=== PATIENT | female | born 1950 | race Caucasian/White ===

== ENCOUNTER → 2016-03-24 | Outpatient (REF) | payer MEDICARE ==
[2016-03-24 19:55] LABS: ALBUMIN 4.1 GM/DL (3.2-5.2); ALBUMIN/GLOBULIN RATIO 1.21 (1.00-1.93); BILIRUBIN,TOTAL 0.4 MG/DL (0.2-1.0); CALCIUM LEVEL 9.3 MG/DL (8.8-10.2); CREATININE FOR GFR 1.06 MG/DL (0.55-1.02); POTASSIUM SERUM 4.3 MEQ/L (3.5-5.1); TOTAL PROTEIN 7.5 GM/DL (6.4-8.2)
[2016-03-24 19:59] LABS: BASO % 0.6 % (0.0-1.0); EOS # 0.4 K/mm3 (0.0-0.50); EOS % 5.7 % (0.0-3.0); LYMPH # 2.4 K/mm3 (1.5-4.5); LYMPH % 31.1 % (24.0-44.0); MEAN CORPUSCULAR HEMOGLOBIN 28.3 pg (27.0-33.0); MEAN CORPUSCULAR HGB CONC 32.4 g/dl (32.0-36.5); MEAN CORPUSCULAR VOLUME 87.5 fl (80.0-96.0); MONO # 0.5 K/mm3 (0.0-0.8); MONO % 6.9 % (0.0-5.0); NEUTROPHILS # 3.6 K/mm3 (1.8-7.7); RED CELL DISTRIBUTION WIDTH 13.1 % (11.5-14.5)
== END | disposition home or self-care (01) ==
LOC: M LAB REF 17:18
PROVIDERS: ATTEND Physician Assistant Medical
DX: E11.9 Type 2 diabetes mellitus without complications (principal)

== ENCOUNTER → 2016-03-28 | Outpatient (CLI) | payer MEDICARE ==
[~2016-03-28] MED LIST: GASTROGRAFIN SOLUTION 30ML (Q9963) As Ordered ONE; ISOVUE-370 76% 100ML VIAL (Q9967) As Ordered ONE
--- NOTE | 2016-03-28 14:56 | REP ---
Clinical: Generalized abdominal pain and gastroparesis. Technique: Axial contrast enhanced images from the lung bases to the pubic symphysis using oral and 100 ml Isovue 370 intravenous contrast material with precontrast and delayed images of the abdomen as well as coronal and sagittal re-formations. Comparison: None. Findings: Lung bases demonstrate mild emphysematous changes and infrahilar bronchiectasis. Visualized portions of the heart and pericardium normal. Liver, spleen, pancreas, bilateral adrenal glands are normal. Kidneys demonstrate mild symmetric chronic perinephric stranding along with 1 mm nonobstructing left renal calculus and 1.6 cm right renal cyst. The enteric system including stomach, small and large bowel is without obstruction or acute inflammatory process. Pelvis demonstrates normal bladder and age-appropriate uterus/adnexa. No pelvic fluid/ascites. No adenopathy. No mass lesion. Atherosclerotic changes of the aorta noted without aneurysm or dissection. Musculoskeletal structures are intact. Impression: No acute intra-abdominal or pelvic pathology appreciated. 1.6 cm right renal cyst and 1 mm nonobstructing left renal calculus. Signed by Ron Morin MD 03/28/2016 02:48 P
== END | disposition home or self-care (01) ==
LOC: M RAD 12:31 → MERGE 14:00
PROVIDERS: ATTEND Physician Assistant Medical
DX: K31.84 Gastroparesis (principal); N28.1 Cyst of kidney, acquired; N20.0 Calculus of kidney
CPT/HCPCS: 74178; Q9963; Q9967

== ENCOUNTER → 2016-04-14 | Outpatient (CLI) | payer MEDICARE ==
--- NOTE | 2016-04-14 09:02 | REP ---
CT STUDY OF THE CHEST WITHOUT CONTRAST: HISTORY: COPD. Bronchiectasis, cough. No comparison CT study. No comparison chest x-ray. CT FINDINGS: Preliminary digital floor covering printer assistant radiograph shows clips in the right upper quadrant, median sternotomy wires, and surgical fusion hardware in the cervical spine. There is no evidence of pleural or pericardial effusion. Vascular calcification is seen including the coronary arteries. No adrenal lesion is seen. There are clips in right upper quadrant. There is a 1.7 cm cyst in the upper pole of the right kidney. A tiny intrarenal calculus is seen in the upper pole of the left kidney, 2 mm in diameter. No hilar or mediastinal mass or adenopathy is seen. No pulmonary nodule or lung mass lesion is observed. No infiltrate is seen. No bony destructive lesion is appreciated. There is an area of interstitial fibrosis in the right lower lobe posteromedially adjacent to some thoracic spine osteophytes. No other significant finding. IMPRESSION: Postoperative changes as above. Small zone of interstitial fibrosis and a granulomatous calcification are seen in the right lower lobe. No acute cardiopulmonary disease seen. Signed by Sunny Vera MD 04/14/2016 02:26 P
== END ==
LOC: M RAD 06:48
PROVIDERS: ATTEND Physician Assistant Medical
DX: J44.9 Chronic obstructive pulmonary disease, unspecified (principal); R91.8 Other nonspecific abnormal finding of lung field

== ENCOUNTER → 2016-05-26 | Outpatient (REF) | payer MEDICARE ==
[2016-05-26 19:12] LABS: BASO % 0.5 % (0.0-1.0); EOS # 0.6 K/mm3 (0.0-0.50); EOS % 8.8 % (0.0-3.0); LYMPH # 2.2 K/mm3 (1.5-4.5); LYMPH % 30.9 % (24.0-44.0); MEAN CORPUSCULAR HEMOGLOBIN 28.2 pg (27.0-33.0); MEAN CORPUSCULAR HGB CONC 31.7 g/dl (32.0-36.5); MEAN CORPUSCULAR VOLUME 89.1 fl (80.0-96.0); MONO # 0.4 K/mm3 (0.0-0.8); MONO % 6.6 % (0.0-5.0); NEUTROPHILS # 3.3 K/mm3 (1.8-7.7); NEUTROPHILS % 50.5 % (36.0-66.0); RED CELL DISTRIBUTION WIDTH 13.6 % (11.5-14.5); WHITE BLOOD COUNT 6.6 K/mm3 (4.0-10.0)
[2016-05-26 20:29] LABS: ALBUMIN 4.2 GM/DL (3.2-5.2); ALBUMIN/GLOBULIN RATIO 1.27 (1.00-1.93); ALKALINE PHOSPHATASE 69 U/L (45-117); ALT/SGPT 47 U/L (12-78); ANION GAP 9 MEQ/L (8-16); AST/SGOT 31 U/L (15-37); BILIRUBIN,TOTAL 0.3 MG/DL (0.2-1.0); BLOOD UREA NITROGEN 11 MG/DL (7-18); CALCIUM LEVEL 8.7 MG/DL (8.8-10.2); CARBON DIOXIDE LEVEL 26 MEQ/L (21-32); CHLORIDE LEVEL 106 MEQ/L (98-107); CHOLESTEROL LEVEL 222 MG/DL (<200); CREATININE FOR GFR 0.91 MG/DL (0.55-1.02); GLOMERULAR FILTRATION RATE > 60.0 (>45); GLUCOSE, FASTING 137 MG/DL (80-110); POTASSIUM SERUM 4.6 MEQ/L (3.5-5.1); SODIUM LEVEL 141 MEQ/L (136-145); TOTAL PROTEIN 7.5 GM/DL (6.4-8.2); TRIGLYCERIDES LEVEL 194 MG/DL (<150)
== END ==
LOC: M LAB REF 17:12
PROVIDERS: ATTEND Physician Assistant Medical
DX: E11.9 Type 2 diabetes mellitus without complications (principal)

== ENCOUNTER → 2016-05-28 | Outpatient (CLI) | payer MEDICARE ==
[~2016-05-28] MED LIST changes: +E-Z PAQUE 60% w/v SUSP 355ML BOTTLE As Ordered ONE; -GASTROGRAFIN SOLUTION 30ML (Q9963) As Ordered ONE; -ISOVUE-370 76% 100ML VIAL (Q9967) As Ordered ONE
--- NOTE | 2016-05-28 17:47 | REP ---
SMALL BOWEL FOLLOW-THROUGH: The procedure was performed under the direct supervision of Dr. Vera. The images were reviewed with Dr. Vera. The teachers' assistant film shows no organomegaly or pathological masses. The intestinal gas pattern is nonspecific. There are surgical clips noted in the right upper quadrant. There are vascular calcifications identified. Liquid barium was administered and the barium column was followed through the small bowel to the level of the terminal ileum. Small bowel transit time is approximately 3 1/2 hours. During fluoroscopy gentle palpation shows all loops are freely movable and pliable. There are no fixed or angulated loops. The small bowel mucosal pattern is normal in course and caliber. There is no transition to suggest a partial small bowel obstruction. Spot filming of terminal ileum shows it to be unremarkable. IMPRESSION: Small bowel follow-through examination within normal limits. 47 seconds of fluoroscopy time was utilized for this procedure. Reviewed by [place] Norton 05/29/2016 04:07 PEdited and Signed by Sunny Vera MD 05/29/2016 04:45 P
== END ==
LOC: M RAD 08:06
PROVIDERS: ATTEND Physician Assistant Medical
DX: K31.84 Gastroparesis (principal)

== ENCOUNTER → 2016-06-12 | Outpatient (CLI) | payer MEDICARE ==
--- NOTE | 2016-06-12 10:22 | REP ---
NUCLEAR GASTRIC EMPTYING SCAN: Following the oral administration of 1.02 millicuries technetium 99m sulfur colloid in two scrambled eggs in 1 ounce of water, multiple images of the upper abdomen are performed in the anterior and posterior projections for 90 minutes. Gastric activity is measured. At the end of 90 minutes, there is essentially no emptying of the stomach with activity unchanged. IMPRESSION: Findings compatible with gastroparesis. After 90 minutes, there is no evidence of gastric emptying scintigraphically. Signed by Mitchell Gan MD 06/13/2016 05:10 P
== END ==
LOC: M RAD 07:52
PROVIDERS: ATTEND Internal Medicine Gastroenterology
DX: K31.84 Gastroparesis (principal)
CPT/HCPCS: 78264; A9541

== ENCOUNTER → 2016-06-20 | Outpatient (CLI) | payer MEDICARE ==
[~2016-06-20] MED LIST changes: -E-Z PAQUE 60% w/v SUSP 355ML BOTTLE As Ordered ONE; +E-Z-GAS II EFFERVESCENT PACKET (SODIUM BICARB./CITRIC ACID/SIMETHICONE) As Ordered ONE; +E-Z-HD 98% w/w 340GM SUSP BTL As Ordered ONE; +E-Z-PAQUE 96% w/w SUSP 176GM BTL As Ordered ONE; +METF1000 PO; +OMEP40CA2 PO; +ROSU40TA PO; +TOPR25TA PO; +VITA50003 PO
--- NOTE | 2016-06-20 16:53 | REP ---
ESOPHAGRAM, AIR CONTRAST: The procedure was performed under the direct supervision of Dr. Gan. The images were reviewed with Dr. Gan. A single view PA chest x-ray is submitted as a avionics test technician film. The patient is status-post median sternotomy. There are surgical clips noted in the right upper quadrant. There is no active disease. Liquid barium and gas producing granules were given in the erect position as well as liquid barium in the prone oblique positions in order to perform an double contrast esophagram examination. The oral and pharyngeal stages of deglutition are unremarkable. 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 There is cervical fusion hardware seen from the C4 through C7 levels. Esophageal transport is prompt and efficient. In the distal esophagus there is mucosal irregularity and a stricture with patent lumen which measures 8 mm. There is a hiatal hernia present. There is gastroesophageal reflux demonstrated to above the level of the prateek. These findings may represent reflux esophagitis. IMPRESSION: 1. 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 2. In the distal esophagus there is mucosal irregularity and a stricture, with a patent lumen which measures 8 mm. There is hiatal hernia present. There is gastroesophageal reflux demonstrated to above the level of the prateek. These findings may represent reflux esophagitis. 1 minute and 1 second of fluoroscopic time was utilized for this procedure. Reviewed by [place] Norton 06/20/2016 05:03 PEdited and Signed by Mitchell Gan MD 06/20/2016 07:55 P
== END ==
LOC: M RAD 08:12
PROVIDERS: ATTEND Internal Medicine Gastroenterology
DX: K21.9 Gastro-esophageal reflux disease without esophagitis (principal); R13.10 Dysphagia, unspecified; R11.10 Vomiting, unspecified; Q39.4 Esophageal web; K22.2 Esophageal obstruction; K44.9 Diaphragmatic hernia without obstruction or gangrene

== ENCOUNTER → 2016-06-27 | Outpatient (CLI) | payer MEDICARE ==
[~2016-06-27] VITALS: Ht 149.9 cm; Wt 47.6 kg
[~2016-06-27] MED LIST changes: -E-Z-GAS II EFFERVESCENT PACKET (SODIUM BICARB./CITRIC ACID/SIMETHICONE) As Ordered ONE; -E-Z-HD 98% w/w 340GM SUSP BTL As Ordered ONE; -E-Z-PAQUE 96% w/w SUSP 176GM BTL As Ordered ONE; +LIDOCAINE 2% INJ 100 MG/5 ML SDV (FOR ANES.) As Ordered ONE; +METOPROLOL SUCC *XL* 25MG TAB (TopROL *XL*) As Ordered ONE; +METOPROLOL SUCC *XL* 25MG TAB (TopROL *XL*) PO ONE; +NS 1,000 ML IV SCH; +PROPOFOL 200 MG/20 ML VIAL As Ordered ONE; +TRUL0.5I SC
[2016-06-27 07:27] VITALS: BP 142/73
--- NOTE | 2016-06-27 08:16 | ROOR ---
Patient Name: Megan Shaw Procedure Date: 06/27/2016 7:48 AM Date of : 1950 Age: 66 Room: [facility] Gender: Female Note Status: Finalized Procedure: Upper GI endoscopy Indications: Abnormal cine-esophagram, Gastroparesis, Eructation Providers: Stanton ENGLE MD Referring MD: MORRIS MUNOZ Requesting Provider: Medicines: Monitored Anesthesia Care Complications: No immediate complications. Procedure: Pre-Anesthesia Assessment: - The heart rate, respiratory rate, oxygen saturations, blood pressure, adequacy of pulmonary ventilation, and response to care were monitored throughout the procedure. The Endoscope was introduced through the mouth, and advanced to the second part of duodenum. The upper GI endoscopy was accomplished without difficulty. The patient tolerated the procedure well. Findings: A medium amount of food (residue) was found in the entire examined stomach. Removal of food was accomplished. The examined duodenum was normal. (pylorus is patent, no gastric oulet obstruction) One moderate (circumferential scarring or stenosis; an endoscope may pass) benign-appearing, intrinsic stenosis was found in the lower third of the esophagus. This measured 1 cm (in length) and was traversed. A TTS dilator was passed through the scope. Dilation with a 15-16.5-18 mm balloon dilator was performed to 16.5 mm. The dilation site was examined and showed moderate improvement in luminal narrowing and complete resolution of luminal narrowing. Impression: - Stomach: Gastroparesis: A medium amount of food (residue) in the stomach interfering with visualisation, Partial removal was successful. - Duodenum: Normal examined duodenum. Pylorus is patent. - Lower Esophagus: Benign-appearing distal esophageal stenosis. - dilated to 16.5 mm with TTS balloon dilator. - Upper Esophagus: I do not see a definite proximal esophageal web described on BA swallow. Recommendation: - Gastroparesis diet: - Eat smaller, more frequent meals throughout the day. - Low fat diet. - Liquid/soft foods are tolerated better than solid foods. - Low fiber/well cooked vegetables are tolerated better than high fiber/fibrous foods/raw vegetables. - Avoid medications that inhibit gastric/intestinal motility such as narcotic medications. - Continue present medications. - Repeat upper endoscopy in 1 month because the preparation was poor and for retreatment. - My office will call you to reschedule the procedure. Stanton Engle MD Stanton ENGLE MD 06/27/2016 8:16:26 AM This report has been signed electronically. Number of Addenda: 0 Note Initiated On: 06/27/2016 7:48 AM Estimated Blood Loss: Estimated blood loss: none.
[2016-06-27 08:30] VITALS: BP 127/70
== END | disposition home or self-care (01) ==
LOC: M OPP 06:41
PROVIDERS: ATTEND Internal Medicine Gastroenterology
DX: R93.3 Abnormal findings on diagnostic imaging of other parts of digestive tract (principal); R14.2 Eructation; K31.84 Gastroparesis; K22.2 Esophageal obstruction; T18.2XXA Foreign body in stomach, initial encounter; I25.10 Atherosclerotic heart disease of native coronary artery without angina pectoris; I10 Essential (primary) hypertension; E78.5 Hyperlipidemia, unspecified; R19.7 Diarrhea, unspecified; K59.00 Constipation, unspecified; R12 Heartburn; R11.10 Vomiting, unspecified; M54.9 Dorsalgia, unspecified; E11.9 Type 2 diabetes mellitus without complications; M79.7 Fibromyalgia; Z95.1 Presence of aortocoronary bypass graft; Z88.5 Allergy status to narcotic agent; Z79.82 Long term (current) use of aspirin; Z79.84 Long term (current) use of oral hypoglycemic drugs; Z79.899 Other long term (current) drug therapy; Y92.9 Unspecified place or not applicable

== ENCOUNTER → 2016-07-30 | Outpatient (CLI) | payer MEDICARE ==
[~2016-07-30] MED LIST changes: -LIDOCAINE 2% INJ 100 MG/5 ML SDV (FOR ANES.) As Ordered ONE; -METOPROLOL SUCC *XL* 25MG TAB (TopROL *XL*) As Ordered ONE; -METOPROLOL SUCC *XL* 25MG TAB (TopROL *XL*) PO ONE; -NS 1,000 ML IV SCH; -PROPOFOL 200 MG/20 ML VIAL As Ordered ONE
[2016-07-30 10:10] LABS: ALBUMIN 4.1 GM/DL (3.2-5.2); ALBUMIN/GLOBULIN RATIO 1.24 (1.00-1.93); ALKALINE PHOSPHATASE 61 U/L (45-117); ALT/SGPT 48 U/L (12-78); ANION GAP 5 MEQ/L (8-16); AST/SGOT 40 U/L (15-37); BILIRUBIN,TOTAL 0.3 MG/DL (0.2-1.0); BLOOD UREA NITROGEN 10 MG/DL (7-18); CALCIUM LEVEL 9.2 MG/DL (8.8-10.2); CARBON DIOXIDE LEVEL 29 MEQ/L (21-32); CHLORIDE LEVEL 105 MEQ/L (98-107); CHOLESTEROL LEVEL 234 MG/DL (<200); CREATININE FOR GFR 0.93 MG/DL (0.55-1.02); GLOMERULAR FILTRATION RATE > 60.0 (>45); GLUCOSE, FASTING 121 MG/DL (80-110); SODIUM LEVEL 139 MEQ/L (136-145); TOTAL PROTEIN 7.4 GM/DL (6.4-8.2); TRIGLYCERIDES LEVEL 257 MG/DL (<150)
[2016-07-30 10:16] LABS: POTASSIUM SERUM 5.4 MEQ/L (3.5-5.1)
== END ==
LOC: M WUC 08:28
PROVIDERS: ATTEND Physician Assistant Medical
DX: E11.9 Type 2 diabetes mellitus without complications (principal)

== ENCOUNTER → 2016-08-22 | Outpatient (CLI) | payer MEDICARE ==
[~2016-08-22] VITALS: Ht 149.9 cm; Wt 49.9 kg
[~2016-08-22] MED LIST changes: +LIDOCAINE 2% INJ 100 MG/5 ML SDV (FOR ANES.) As Ordered ONE; -METF1000 PO; +METF10004 PO; +NS 1,000 ML IV ONE; +ONDA4TAB6 PO; +PROPOFOL 200 MG/20 ML VIAL As Ordered ONE; +VITA1CAP40 PO; -VITA50003 PO; +ZETI10TA30 PO
--- NOTE | 2016-08-22 10:01 | ROOR ---
Patient Name: Megan Shaw Procedure Date: 08/22/2016 9:39 AM Date of : 1950 Age: 66 Room: [facility] Gender: Female Note Status: Finalized Procedure: Upper GI endoscopy Indications: Oropharyngeal phase dysphagia, Follow-up of esophageal stenosis, Abnormal cine-esophagram, Gastroparesis Providers: Stanton ENGLE MD Referring MD: Ivory Carrillo Requesting Provider: Medicines: Monitored Anesthesia Care Complications: No immediate complications. Procedure: Pre-Anesthesia Assessment: - The heart rate, respiratory rate, oxygen saturations, blood pressure, adequacy of pulmonary ventilation, and response to care were monitored throughout the procedure. The Endoscope was introduced through the mouth, and advanced to the second part of duodenum. The upper GI endoscopy was accomplished without difficulty. The patient tolerated the procedure well. Findings: One moderate (circumferential scarring or stenosis; an endoscope may pass) benign-appearing, intrinsic stenosis was found in the proximal esophagus. This measured less than one cm (in length) and was traversed. The scope was withdrawn. Dilation was performed with a Helm dilator with mild resistance at 42 Fr. One moderate (circumferential scarring or stenosis; an endoscope may pass) benign-appearing, intrinsic stenosis was found at the gastroesophageal junction. This measured less than one cm (in length) and was traversed. A TTS dilator was passed through the scope. Dilation with a 15-16.5-18 mm balloon dilator was performed to 16.5 mm. The dilation site was examined and showed complete resolution of luminal narrowing. This was biopsied with a cold forceps for histology. The entire examined stomach was normal. The examined duodenum was normal. Impression: - Overall relatively small caliber esophagus. There are two sites of slight narrowing: - Benign-appearing esophageal stenosis/Web in proximal esophagus. Dilated to 42 F Helm. - Benign-appearing esophageal stenosis in distal esophagus. Dilated to 16.5 mm Balloon dilator. Biopsied. - Normal stomach with a small hiatal hernia. - Normal examined duodenum. Recommendation: - Observe patient's clinical course. - Continue present medications. - I anticipate no further need for intervention. Stanton Engle MD Stanton ENGLE MD 08/22/2016 10:00:43 AM This report has been signed electronically. Number of Addenda: 0 Note Initiated On: 08/22/2016 9:39 AM Estimated Blood Loss: Estimated blood loss: none.
[2016-08-22 10:10] VITALS: BP 117/59
== END ==
LOC: M OPP 08:46
PROVIDERS: ATTEND Internal Medicine Gastroenterology
DX: K22.2 Esophageal obstruction (principal); R13.12 Dysphagia, oropharyngeal phase; K31.84 Gastroparesis; R93.3 Abnormal findings on diagnostic imaging of other parts of digestive tract; I25.10 Atherosclerotic heart disease of native coronary artery without angina pectoris; I10 Essential (primary) hypertension; K21.9 Gastro-esophageal reflux disease without esophagitis; M79.7 Fibromyalgia; Z95.1 Presence of aortocoronary bypass graft; Z79.899 Other long term (current) drug therapy; Z79.84 Long term (current) use of oral hypoglycemic drugs; Z88.5 Allergy status to narcotic agent

== ENCOUNTER → 2016-09-17 | Outpatient (CLI) | payer MEDICARE ==
[~2016-09-17] MED LIST changes: -LIDOCAINE 2% INJ 100 MG/5 ML SDV (FOR ANES.) As Ordered ONE; -NS 1,000 ML IV ONE; -PROPOFOL 200 MG/20 ML VIAL As Ordered ONE
[2016-09-17 13:26] LABS: BASO % 0.5 % (0.0-1.0); EOS # 0.4 K/mm3 (0.0-0.50); EOS % 4.3 % (0.0-3.0); LYMPH # 2.4 K/mm3 (1.5-4.5); LYMPH % 23.9 % (24.0-44.0); MEAN CORPUSCULAR HGB CONC 32.4 g/dl (32.0-36.5); MEAN CORPUSCULAR VOLUME 89.4 fl (80.0-96.0); MONO # 0.5 K/mm3 (0.0-0.8); MONO % 5.9 % (0.0-5.0); NEUTROPHILS # 5.9 K/mm3 (1.8-7.7); NEUTROPHILS % 63.5 % (36.0-66.0); RED CELL DISTRIBUTION WIDTH 12.7 % (11.5-14.5); WHITE BLOOD COUNT 9.2 K/mm3 (4.0-10.0)
[2016-09-17 14:38] LABS: ALBUMIN 4.2 GM/DL (3.2-5.2); ALBUMIN/GLOBULIN RATIO 1.08 (1.00-1.93); BILIRUBIN,TOTAL 0.4 MG/DL (0.2-1.0); CALCIUM LEVEL 9.6 MG/DL (8.8-10.2); CREATININE FOR GFR 1.05 MG/DL (0.55-1.02); GLOMERULAR FILTRATION RATE 55.7 (>45); TOTAL PROTEIN 8.1 GM/DL (6.4-8.2)
[2016-09-17 14:59] LABS: POTASSIUM SERUM 5.2 MEQ/L (3.5-5.1)
== END ==
LOC: M WUC 08:24
PROVIDERS: ATTEND Physician Assistant Medical
DX: E78.2 Mixed hyperlipidemia (principal); E11.9 Type 2 diabetes mellitus without complications

== ENCOUNTER → 2016-12-23 | Outpatient (CLI) | payer MEDICARE ==
[2016-12-23 10:07] LABS: BASO % 0.6 % (0.0-1.0); EOS # 0.4 10^3/uL (0.0-0.50); EOS % 5.8 % (0.0-3.0); IMMATURE GRANULOCYTE % 0.1 % (0-0); LYMPH # 2.6 10^3/uL (1.5-4.5); LYMPH % 36.5 % (24.0-44.0); MEAN CORPUSCULAR HEMOGLOBIN 28.2 pg (27.0-33.0); MEAN CORPUSCULAR HGB CONC 32.5 g/dl (32.0-36.5); MEAN CORPUSCULAR VOLUME 86.8 fl (80.0-96.0); MONO # 0.7 10^3/uL (0.0-0.8); MONO % 9.2 % (0.0-5.0); NEUTROPHILS # 3.4 10^3/uL (1.8-7.7); NEUTROPHILS % 47.8 % (36.0-66.0); PLATELET COUNT, AUTOMATED 241 10^3/uL (150-450); RED CELL DISTRIBUTION WIDTH 13.4 % (11.5-14.5); WHITE BLOOD COUNT 7.1 10^3/uL (4.0-10.0)
[2016-12-23 10:52] LABS: ALBUMIN/GLOBULIN RATIO 1.18 (1.00-1.93); BILIRUBIN,TOTAL 0.2 MG/DL (0.2-1.0); CALCIUM LEVEL 9.5 MG/DL (8.8-10.2); CREATININE FOR GFR 1.01 MG/DL (0.55-1.02); GLOMERULAR FILTRATION RATE 58.2 (>45); TOTAL PROTEIN 7.4 GM/DL (6.4-8.2)
[2016-12-23 11:05] LABS: POTASSIUM SERUM 5.2 MEQ/L (3.5-5.1)
== END ==
LOC: M WUC 08:06
PROVIDERS: ATTEND Physician Assistant Medical
DX: E11.9 Type 2 diabetes mellitus without complications (principal)

== ENCOUNTER → 2017-04-23 | Outpatient (CLI) | payer MEDICARE ==
[2017-04-23 07:14] LABS: HEMATOCRIT 41.8 % (36.0-47.0); HEMOGLOBIN 13.4 g/dl (12.0-16.0); MEAN CORPUSCULAR HGB CONC 32.1 g/dl (32.0-36.5); MEAN CORPUSCULAR VOLUME 87.4 fl (80.0-96.0); PLATELET COUNT, AUTOMATED 245 10^3/uL (150-450); RED BLOOD COUNT 4.78 10^6/uL (4.00-5.40); RED CELL DISTRIBUTION WIDTH 13.3 % (11.5-14.5); WHITE BLOOD COUNT 6.3 10^3/uL (4.0-10.0)
[2017-04-23 07:27] LABS: ESTIMATED AVERAGE GLUCOSE 177 MG/DL (60-110); HEMOGLOBIN A1c 7.8 %
[2017-04-23 07:34] LABS: ALBUMIN/GLOBULIN RATIO 1.21 (1.00-1.93); ALKALINE PHOSPHATASE 79 U/L (45-117); ALT/SGPT 60 U/L (12-78); ANION GAP 7 MEQ/L (8-16); AST/SGOT 48 U/L (7-37); BILIRUBIN,TOTAL 0.3 MG/DL (0.2-1.0); BLOOD UREA NITROGEN 11 MG/DL (7-18); CALCIUM LEVEL 8.6 MG/DL (8.8-10.2); CARBON DIOXIDE LEVEL 27 MEQ/L (21-32); CHLORIDE LEVEL 107 MEQ/L (98-107); CHOLESTEROL LEVEL 199 MG/DL (<200); CHOLESTEROL RISK RATIO 5.102 (<5); CREATININE FOR GFR 0.89 MG/DL (0.55-1.30); GLOMERULAR FILTRATION RATE > 60.0 (>45); GLUCOSE, FASTING 146 MG/DL (70-100); HDL CHOLESTEROL 39 MG/DL (>40); NON-HDL-C 160 MG/DL; POTASSIUM SERUM 4.5 MEQ/L (3.5-5.1); SODIUM LEVEL 141 MEQ/L (136-145); TOTAL PROTEIN 7.3 GM/DL (6.4-8.2); TRIGLYCERIDES LEVEL 285 MG/DL (<150)
[2017-04-23 09:30] LABS: TOTAL 25(OH) VITAMIN D 87.8 NG/ML (30.0-100.0)
== END ==
LOC: M LAB 06:26
DX: I10 Essential (primary) hypertension (principal); E11.9 Type 2 diabetes mellitus without complications; R53.83 Other fatigue
CPT/HCPCS: 71046

== ENCOUNTER → 2017-12-14 | Outpatient (CLI) | payer MEDICARE ==
[2017-12-14 07:20] LABS: HEMATOCRIT 40.9 % (36.0-47.0); HEMOGLOBIN 13.2 g/dl (12.0-15.5); MEAN CORPUSCULAR HEMOGLOBIN 28.6 pg (27.0-33.0); MEAN CORPUSCULAR HGB CONC 32.3 g/dl (32.0-36.5); MEAN CORPUSCULAR VOLUME 88.5 fl (80.0-96.0); PLATELET COUNT, AUTOMATED 210 10^3/uL (150-450); RED BLOOD COUNT 4.62 10^6/uL (4.00-5.40); RED CELL DISTRIBUTION WIDTH 13.2 % (11.5-14.5); WHITE BLOOD COUNT 6.5 10^3/uL (4.0-10.0)
[2017-12-14 07:50] LABS: ALBUMIN 3.8 GM/DL (3.2-5.2); ALBUMIN/GLOBULIN RATIO 1.19 (1.00-1.93); ALKALINE PHOSPHATASE 78 U/L (45-117); ALT/SGPT 27 U/L (12-78); ANION GAP 7 MEQ/L (8-16); AST/SGOT 23 U/L (7-37); BILIRUBIN,TOTAL 0.3 MG/DL (0.2-1.0); BLOOD UREA NITROGEN 17 MG/DL (7-18); CALCIUM LEVEL 8.4 MG/DL (8.8-10.2); CARBON DIOXIDE LEVEL 26 MEQ/L (21-32); CHLORIDE LEVEL 108 MEQ/L (98-107); CHOLESTEROL LEVEL 151 MG/DL (<200); CHOLESTEROL RISK RATIO 3.511 (<5); CREATININE FOR GFR 0.96 MG/DL (0.55-1.30); GLOMERULAR FILTRATION RATE > 60.0 (>45); GLUCOSE, FASTING 127 MG/DL (70-100); HDL CHOLESTEROL 43 MG/DL (>40); LDL CHOLESTEROL 89 MG/DL (<100); NON-HDL-C 108 MG/DL; POTASSIUM SERUM 4.4 MEQ/L (3.5-5.1); SODIUM LEVEL 141 MEQ/L (136-145); TRIGLYCERIDES LEVEL 93 MG/DL (<150)
[2017-12-14 10:15] LABS: TOTAL 25(OH) VITAMIN D 82.9 NG/ML (30.0-100.0)
[2017-12-14 11:17] LABS: ESTIMATED AVERAGE GLUCOSE 166 MG/DL (60-110); HEMOGLOBIN A1c 7.4 %
== END ==
LOC: M LAB 06:36
DX: D64.9 Anemia, unspecified (principal); E03.9 Hypothyroidism, unspecified; Z79.899 Other long term (current) drug therapy
CPT/HCPCS: 84443

== ENCOUNTER → 2018-05-13 | Outpatient (CLI) | payer MEDICARE ==
[~2018-05-13] MED LIST changes: -ROSU40TA PO; +ROSU40TA3 PO; -TOPR25TA PO; +TOPR25TA13 PO; -VITA1CAP40 PO; +VITA50005 PO
[2018-05-13 07:22] LABS: HEMATOCRIT 42.3 % (36.0-47.0); HEMOGLOBIN 13.9 g/dl (12.0-15.5); MEAN CORPUSCULAR HEMOGLOBIN 28.8 pg (27.0-33.0); MEAN CORPUSCULAR HGB CONC 32.9 g/dl (32.0-36.5); MEAN CORPUSCULAR VOLUME 87.8 fl (80.0-96.0); PLATELET COUNT, AUTOMATED 224 10^3/uL (150-450); RED BLOOD COUNT 4.82 10^6/uL (4.00-5.40); WHITE BLOOD COUNT 7.2 10^3/uL (4.0-10.0)
[2018-05-13 07:42] LABS: HEMOGLOBIN A1c 7.5 %
[2018-05-13 08:01] LABS: ALBUMIN 4.2 GM/DL (3.2-5.2); ALT/SGPT 26 U/L (12-78); BILIRUBIN,TOTAL 0.3 MG/DL (0.2-1.0); BLOOD UREA NITROGEN 12 MG/DL (7-18); CALCIUM LEVEL 8.6 MG/DL (8.8-10.2); CARBON DIOXIDE LEVEL 26 MEQ/L (21-32); CHLORIDE LEVEL 108 MEQ/L (98-107); CHOLESTEROL LEVEL 189 MG/DL (<200); CHOLESTEROL RISK RATIO 4.108 (<5); CREATININE FOR GFR 0.93 MG/DL (0.55-1.30); GLOMERULAR FILTRATION RATE > 60.0 (>45); GLUCOSE, FASTING 137 MG/DL (70-100); HDL CHOLESTEROL 46 MG/DL (>40); LDL CHOLESTEROL 120 MG/DL (<100); NON-HDL-C 143 MG/DL; POTASSIUM SERUM 4.2 MEQ/L (3.5-5.1); SODIUM LEVEL 141 MEQ/L (136-145); TOTAL PROTEIN 7.2 GM/DL (6.4-8.2); TRIGLYCERIDES LEVEL 115 MG/DL (<150)
--- NOTE | 2018-05-13 09:44 | REP ---
LUMBAR SPINE, FIVE VIEWS: HISTORY: Sciatica. There is no acute fracture or subluxation. The L2-3 through L5-S1 intervertebral discs are decreased in height consistent with disc degeneration. Osteophytes are present on L3-5. There is narrowing of the L3-4 through L5-S1 facet joints. IMPRESSION: Degenerative change as described above. Electronically Signed by Prakash Hewitt MD 05/13/2018 09:49 A
[2018-05-13 11:55] LABS: TOTAL 25(OH) VITAMIN D 51.4 NG/ML (30.0-100.0)
== END ==
LOC: M LAB 06:45
PROVIDERS: ATTEND Family Medicine
DX: E11.9 Type 2 diabetes mellitus without complications (principal); R53.83 Other fatigue; I10 Essential (primary) hypertension; Z79.899 Other long term (current) drug therapy

== ENCOUNTER → 2018-05-25 | Outpatient (CLI) | payer MEDICARE ==
[~2018-05-25] MED LIST changes: +TOPR25TA PO; -TOPR25TA13 PO
== END ==
LOC: M WHC 07:10
PROVIDERS: ATTEND Family Medicine
DX: M81.0 Age-related osteoporosis without current pathological fracture (principal)

== ENCOUNTER → 2018-09-29 | Outpatient (CLI) | payer MEDICARE ==
[~2018-09-29] MED LIST changes: -ROSU40TA3 PO; +ROSU40TA4 PO; +ZETI10TA16 PO; -ZETI10TA30 PO
[2018-09-29 07:01] LABS: HEMATOCRIT 43.9 % (36.0-47.0); HEMOGLOBIN 14.6 g/dl (12.0-15.5); MEAN CORPUSCULAR HGB CONC 33.3 g/dl (32.0-36.5); MEAN CORPUSCULAR VOLUME 90.3 fl (80.0-96.0); PLATELET COUNT, AUTOMATED 214 10^3/uL (150-450); RED BLOOD COUNT 4.86 10^6/uL (4.00-5.40)
[2018-09-29 07:36] LABS: ALBUMIN 4.1 GM/DL (3.2-5.2); ALT/SGPT 28 U/L (12-78); BILIRUBIN,TOTAL 0.3 MG/DL (0.2-1.0); BLOOD UREA NITROGEN 16 MG/DL (7-18); CALCIUM LEVEL 9.2 MG/DL (8.8-10.2); CARBON DIOXIDE LEVEL 27 MEQ/L (21-32); CHLORIDE LEVEL 106 MEQ/L (98-107); CHOLESTEROL LEVEL 185 MG/DL (<200); CHOLESTEROL RISK RATIO 4.021 (<5); CREATININE FOR GFR 0.93 MG/DL (0.55-1.30); GLOMERULAR FILTRATION RATE > 60.0 (>45); GLUCOSE, FASTING 123 MG/DL (70-100); HDL CHOLESTEROL 46 MG/DL (>40); LDL CHOLESTEROL 98 MG/DL (<100); NON-HDL-C 139 MG/DL; POTASSIUM SERUM 4.4 MEQ/L (3.5-5.1); SODIUM LEVEL 140 MEQ/L (136-145); TOTAL PROTEIN 7.4 GM/DL (6.4-8.2); TRIGLYCERIDES LEVEL 204 MG/DL (<150)
[2018-09-29 07:36] LABS: MALB URINE SIEMENS 34.3 MG/L; MAU/CREAT RATIO 19.6 MCG/MG (0.0-30.0); TOTAL PROTEIN,RANDOM URINE 23.3 MG/DL (0.0-12.0)
[2018-09-29 07:59] LABS: HEMOGLOBIN A1c 7.5 %
[2018-09-29 08:43] LABS: TOTAL 25(OH) VITAMIN D 48.6 NG/ML (30.0-100.0)
== END ==
LOC: M LAB 06:36
PROVIDERS: ATTEND Family Medicine
DX: D64.9 Anemia, unspecified (principal); R53.83 Other fatigue; E03.9 Hypothyroidism, unspecified

== ENCOUNTER → 2020-05-16 | Outpatient (CLI) | payer MEDICARE ==
[~2020-05-16] MED LIST changes: -OMEP40CA2 PO; +OMEP40CA97 PO
[2020-05-16 08:14] LABS: HEMOGLOBIN 14.7 g/dl (12.0-15.5); MEAN CORPUSCULAR HEMOGLOBIN 28.9 pg (27.0-33.0); MEAN CORPUSCULAR HGB CONC 32.7 g/dl (32.0-36.5); MEAN CORPUSCULAR VOLUME 88.4 fl (80.0-96.0); PLATELET COUNT, AUTOMATED 245 10^3/uL (150-450); RED BLOOD COUNT 5.09 10^6/uL (4.00-5.40); WHITE BLOOD COUNT 7.2 10^3/uL (4.0-10.0)
[2020-05-16 08:48] LABS: ALBUMIN 4.2 GM/DL (3.2-5.2); BILIRUBIN,TOTAL 0.4 MG/DL (0.2-1.0); CALCIUM LEVEL 9.2 MG/DL (8.8-10.2); CHOLESTEROL RISK RATIO 4.34 (<5); CREATININE FOR GFR 1.03 MG/DL (0.55-1.30); GLOMERULAR FILTRATION RATE 56.2 (>39); POTASSIUM SERUM 4.6 MEQ/L (3.5-5.1); THYROID STIMULATING HORMONE 2.05 uIU/ML (0.358-3.740); TOTAL PROTEIN 7.5 GM/DL (6.4-8.2)
[2020-05-16 08:56] LABS: HEMOGLOBIN A1c 7.4 %
[2020-05-16 11:56] LABS: TOTAL 25(OH) VITAMIN D 24.7 NG/ML (30.0-100.0)
== END ==
LOC: M LAB 07:45
PROVIDERS: ATTEND Family Medicine
DX: R53.83 Other fatigue (principal); I10 Essential (primary) hypertension; E11.9 Type 2 diabetes mellitus without complications; Z79.899 Other long term (current) drug therapy

== ENCOUNTER 2020-10-31 00:03 | Emergency (ER) | payer MEDICARE ==
[~2020-10-31] VITALS: Ht 149.9 cm; Wt 50.0 kg
[~2020-10-31 00:03] MED LIST changes: +OMEP40CA4 PO; -OMEP40CA97 PO
[2020-10-31 00:04] VITALS: BP 180/84
[2020-10-31] MEDS ORDERED: FARX1TAB5 PO (00:25)
[2020-10-31] MEDS ORDERED: BASA100I SC (00:25)
--- NOTE | 2020-10-31 01:11 | REPVR ---
PROCEDURE INFORMATION: Exam: XR Right Wrist Exam date and time: 10/31/2020 12:26 AM Age: 70 years old Clinical indication: Pain; Wrist; Right; Additional info: Injury TECHNIQUE: Imaging protocol: XR Right wrist. Views: 3 or more views. COMPARISON: No relevant prior studies available. FINDINGS: Bones/joints: No acute fracture. No dislocation. Generalized osteopenia. Chondrocalcinosis of the triangular fibrocartilage complex. Joint spaces are preserved otherwise. Soft tissues: Normal. IMPRESSION: 1. No acute fracture. 2. Generalized osteopenia. 3. Chondrocalcinosis of the triangular fibrocartilage complex. Electronically signed by: Ni Bashir On 10/31/2020 01:11:02 AM
--- NOTE | 2020-10-31 01:11 | REPVR ---
PROCEDURE INFORMATION: Exam: XR Right Hand Exam date and time: 10/31/2020 12:26 AM Age: 70 years old Clinical indication: Pain; Wrist; Right; Additional info: Injury TECHNIQUE: Imaging protocol: XR Right hand. Views: 3 or more views. COMPARISON: CR Wrist, complete RIGHT 10/31/2020 12:17 AM FINDINGS: Bones/joints: No acute fracture. No dislocation. Generalized osteopenia. Chondrocalcinosis of the triangular fibrocartilage complex. Joint spaces are preserved otherwise. Soft tissues: Normal. IMPRESSION: 1. No acute fracture. 2. Generalized osteopenia. 3. Chondrocalcinosis of the triangular fibrocartilage complex. Electronically signed by: Ni Bashir On 10/31/2020 01:10:40 AM
== END 2020-10-31 03:22 | disposition home or self-care (01) ==
LOC: M ED 00:03
DX: S60.211A Contusion of right wrist, initial encounter (principal); S63.601A Unspecified sprain of right thumb, initial encounter; W22.8XXA Striking against or struck by other objects, initial encounter; Y92.511 Restaurant or cafe as the place of occurrence of the external cause; E11.9 Type 2 diabetes mellitus without complications; I10 Essential (primary) hypertension; E78.5 Hyperlipidemia, unspecified; Z88.5 Allergy status to narcotic agent; Z79.899 Other long term (current) drug therapy; Z79.4 Long term (current) use of insulin

== ENCOUNTER → 2020-12-20 | Outpatient (CLI) | payer MEDICARE ==
[~2020-12-20] MED LIST changes: +BASA100I SC; +FARX1TAB5 PO
[2020-12-20 08:22] LABS: HEMATOCRIT 44.1 % (36.0-47.0); HEMOGLOBIN 14.3 g/dl (12.0-15.5); MEAN CORPUSCULAR HEMOGLOBIN 29.1 pg (27.0-33.0); MEAN CORPUSCULAR HGB CONC 32.4 g/dl (32.0-36.5); MEAN CORPUSCULAR VOLUME 89.6 fl (80.0-96.0); PLATELET COUNT, AUTOMATED 197 10^3/uL (150-450); RED BLOOD COUNT 4.92 10^6/uL (4.00-5.40); WHITE BLOOD COUNT 5.2 10^3/uL (4.0-10.0)
[2020-12-20 08:46] LABS: ALBUMIN 3.8 GM/DL (3.2-5.2); ALT/SGPT 30 U/L (12-78); BILIRUBIN,TOTAL 0.4 MG/DL (0.2-1.0); BLOOD UREA NITROGEN 17 MG/DL (7-18); CALCIUM LEVEL 9.1 MG/DL (8.8-10.2); CARBON DIOXIDE LEVEL 26 MEQ/L (21-32); CHLORIDE LEVEL 109 MEQ/L (98-107); CHOLESTEROL LEVEL 179 MG/DL (<200); CHOLESTEROL RISK RATIO 3.808 (<5); CREATININE FOR GFR 0.85 MG/DL (0.55-1.30); GLOMERULAR FILTRATION RATE > 60.0 (>39); GLUCOSE, FASTING 133 MG/DL (70-100); HDL CHOLESTEROL 47 MG/DL (>40); LDL CHOLESTEROL 111 MG/DL (<100); NON-HDL-C 132 MG/DL; POTASSIUM SERUM 4.2 MEQ/L (3.5-5.1); SODIUM LEVEL 140 MEQ/L (136-145); TOTAL PROTEIN 7.2 GM/DL (6.4-8.2); TRIGLYCERIDES LEVEL 107 MG/DL (<150)
[2020-12-20 08:48] LABS: HEMOGLOBIN A1c 8.7 %
== END ==
LOC: M LAB 07:17
PROVIDERS: ATTEND Family Medicine
DX: E11.9 Type 2 diabetes mellitus without complications (principal); E03.9 Hypothyroidism, unspecified; R53.83 Other fatigue

== ENCOUNTER → 2021-01-08 | Outpatient (CLI) | payer MEDICARE | LOC: M RAD 13:33 | PROVIDERS: ATTEND Family Medicine | DX: E07.9 Disorder of thyroid, unspecified (principal) ==

== ENCOUNTER → 2021-04-01 | Outpatient (CLI) | payer MEDICARE ==
[2021-04-01 08:13] LABS: HEMATOCRIT 43.4 % (36.0-47.0); HEMOGLOBIN 13.9 g/dl (12.0-15.5); MEAN CORPUSCULAR HEMOGLOBIN 29.1 pg (27.0-33.0); PLATELET COUNT, AUTOMATED 193 10^3/uL (150-450); RED BLOOD COUNT 4.77 10^6/uL (4.00-5.40); WHITE BLOOD COUNT 5.9 10^3/uL (4.0-10.0)
[2021-04-01 08:37] LABS: HEMOGLOBIN A1c 6.9 %
[2021-04-01 08:54] LABS: ALT/SGPT 27 U/L (12-78); BILIRUBIN,TOTAL 0.2 MG/DL (0.2-1.0); BLOOD UREA NITROGEN 14 MG/DL (7-18); CARBON DIOXIDE LEVEL 25 MEQ/L (21-32); CHLORIDE LEVEL 110 MEQ/L (98-107); CHOLESTEROL LEVEL 184 MG/DL (<200); CHOLESTEROL RISK RATIO 3.607 (<5); CREATININE FOR GFR 0.96 MG/DL (0.55-1.30); GLOMERULAR FILTRATION RATE > 60.0 (>39); GLUCOSE, FASTING 139 MG/DL (70-100); HDL CHOLESTEROL 51 MG/DL (>40); LDL CHOLESTEROL 101 MG/DL (<100); NON-HDL-C 133 MG/DL; POTASSIUM SERUM 4.2 MEQ/L (3.5-5.1); SODIUM LEVEL 143 MEQ/L (136-145); TOTAL PROTEIN 7.4 GM/DL (6.4-8.2); TRIGLYCERIDES LEVEL 160 MG/DL (<150)
== END ==
LOC: M RAD 06:17
PROVIDERS: ATTEND Family Medicine
DX: I10 Essential (primary) hypertension (principal); E11.9 Type 2 diabetes mellitus without complications; I20.9 Angina pectoris, unspecified

== ENCOUNTER → 2021-09-09 | Outpatient (CLI) | payer MEDICARE | LOC: M RAD 09:52 | PROVIDERS: ATTEND Family Medicine | DX: M17.12 Unilateral primary osteoarthritis, left knee (principal); M79.605 Pain in left leg; M25.572 Pain in left ankle and joints of left foot ==

== ENCOUNTER → 2021-10-29 | Outpatient (CLI) | payer MEDICARE ==
[2021-10-29 13:45] LABS: BASO # 0.1 10^3/uL (0.0-0.2); BASO % 0.8 % (0.0-1.0); EOS # 0.3 10^3/uL (0.0-0.5); EOS % 4.2 % (0.0-3.0); HEMATOCRIT 40.6 % (36.0-47.0); HEMOGLOBIN 12.9 g/dl (12.0-15.5); LYMPH # 2.3 10^3/uL (1.5-5.0); LYMPH % 30.4 % (24.0-44.0); MEAN CORPUSCULAR HEMOGLOBIN 28.7 pg (27.0-33.0); MEAN CORPUSCULAR HGB CONC 31.8 g/dl (32.0-36.5); MEAN CORPUSCULAR VOLUME 90.2 fl (80.0-96.0); MONO # 0.7 10^3/uL (0.0-0.8); MONO % 8.7 % (2.0-8.0); NEUTROPHILS # 4.2 10^3/uL (1.5-8.5); NEUTROPHILS % 55.5 % (36.0-66.0); PLATELET COUNT, AUTOMATED 314 10^3/uL (150-450); WHITE BLOOD COUNT 7.6 10^3/uL (4.0-10.0)
[2021-10-29 14:22] LABS: ERYTHROCYTE SEDIMENTATION RATE 14 mm/hr (0-30)
[2021-10-29 14:43] LABS: RHEUMATOID FACTOR QUANT < 10.0 IU/ML (<15.0); URIC ACID 2.8 MG/DL (2.6-6.0)
== END ==
LOC: M PLALAB 10:37
PROVIDERS: ATTEND Physician Assistant Surgical
DX: M17.12 Unilateral primary osteoarthritis, left knee (principal); Z79.899 Other long term (current) drug therapy

== ENCOUNTER → 2022-01-27 | Outpatient (CLI) | payer MEDICARE ==
[2022-01-27 09:27] LABS: HEMATOCRIT 45.3 % (36.0-47.0); HEMOGLOBIN 14.4 g/dl (12.0-15.5); MEAN CORPUSCULAR HEMOGLOBIN 28.1 pg (27.0-33.0); MEAN CORPUSCULAR HGB CONC 31.8 g/dl (32.0-36.5); MEAN CORPUSCULAR VOLUME 88.3 fl (80.0-96.0); PLATELET COUNT, AUTOMATED 208 10^3/uL (150-450); RED BLOOD COUNT 5.13 10^6/uL (4.00-5.40); WHITE BLOOD COUNT 6.7 10^3/uL (4.0-10.0)
[2022-01-27 09:35] LABS: URIC ACID 2.7 MG/DL (3.1-7.8)
[2022-01-27 09:38] LABS: RHEUMATOID FACTOR QUANT < 3.5 IU/ML (<14)
[2022-01-27 10:47] LABS: ERYTHROCYTE SEDIMENTATION RATE 4 mm/hr (0-30)
== END ==
LOC: M RAD 08:35
PROVIDERS: ATTEND Family Medicine
DX: M54.30 Sciatica, unspecified side (principal)

== ENCOUNTER → 2022-02-12 | Outpatient (CLI) | payer MEDICARE | LOC: M WHC 14:10 | PROVIDERS: ATTEND Family Medicine | DX: M81.0 Age-related osteoporosis without current pathological fracture (principal) ==

== ENCOUNTER 2022-03-12 03:22 | Emergency (ER) | payer MEDICARE ==
[~2022-03-12] VITALS: Ht 152.4 cm; Wt 52.3 kg
[2022-03-12] MEDS ORDERED: BAYE325T12 PO (03:31)
[2022-03-12] MEDS ORDERED: LISI5TAB11 (03:31)
[2022-03-12] MEDS ORDERED: MECLIZINE 25 MG TABLET PO ONE (04:05)
[2022-03-12] MEDS ORDERED: NS 500 ML IV ONE (04:05)
[2022-03-12 04:19] LABS: BASO # 0.1 10^3/uL (0.0-0.2); BASO % 0.8 % (0.0-1.0); EOS # 0.3 10^3/uL (0.0-0.5); HEMATOCRIT 44.1 % (36.0-47.0); HEMOGLOBIN 14.3 g/dl (12.0-15.5); MEAN CORPUSCULAR HEMOGLOBIN 28.1 pg (27.0-33.0); MEAN CORPUSCULAR HGB CONC 32.4 g/dl (32.0-36.5); MEAN CORPUSCULAR VOLUME 86.8 fl (80.0-96.0); MONO # 0.7 10^3/uL (0.0-0.8); MONO % 9.5 % (2.0-8.0); NEUTROPHILS # 4.5 10^3/uL (1.5-8.5); NEUTROPHILS % 59.4 % (36.0-66.0); PLATELET COUNT, AUTOMATED 200 10^3/uL (150-450); RED BLOOD COUNT 5.08 10^6/uL (4.00-5.40); WHITE BLOOD COUNT 7.6 10^3/uL (4.0-10.0)
[2022-03-12 04:29] LABS: INR 0.94; PROTHROMBIN TIME 12.8 SECONDS (12.5-14.5)
[2022-03-12 04:30] LABS: PARTIAL THROMBOPLASTIN TIME 26.4 SECONDS (24.8-34.2)
[2022-03-12 04:43] LABS: BLOOD UREA NITROGEN 23 MG/DL (9-23); CARBON DIOXIDE LEVEL 24 MMOL/L (20-31); CHLORIDE LEVEL 106 MMOL/L (98-107); CREATININE FOR GFR 0.94 MG/DL (0.55-1.30); GLOMERULAR FILTRATION RATE > 60.0 (>39); GLUCOSE, FASTING 140 MG/DL (74-106); POTASSIUM SERUM 4.7 MMOL/L (3.5-5.1); SODIUM LEVEL 139 MMOL/L (136-145)
[2022-03-12 04:48] LABS: CPK CREATINE PHOSPHOKINASE 231 U/L (34-145); MB/CK RELATIVE INDEX 0.86 (< OR =4)
[2022-03-12 06:30] VITALS: BP 151/70
[2022-03-12] MEDS ORDERED: MECL1TAB31 PO (06:45)
== END 2022-03-12 06:56 | disposition home or self-care (01) ==
LOC: M ED 03:22 → EDBD 03:22 → M ED 06:56
DX: H81.10 Benign paroxysmal vertigo, unspecified ear (principal); E11.9 Type 2 diabetes mellitus without complications; I10 Essential (primary) hypertension; I45.10 Unspecified right bundle-branch block; Z79.899 Other long term (current) drug therapy; Z79.4 Long term (current) use of insulin; Z79.82 Long term (current) use of aspirin; Z88.5 Allergy status to narcotic agent

== ENCOUNTER → 2022-06-05 | Outpatient (CLI) | payer MEDICARE ==
[~2022-06-05] MED LIST changes: +BAYE325T12 PO; +LISI5TAB11; +MECL1TAB31 PO
[2022-06-05 09:27] LABS: HEMATOCRIT 45.7 % (36.0-47.0); HEMOGLOBIN 14.6 g/dl (12.0-15.5); MEAN CORPUSCULAR HEMOGLOBIN 29.1 pg (27.0-33.0); MEAN CORPUSCULAR HGB CONC 31.9 g/dl (32.0-36.5); MEAN CORPUSCULAR VOLUME 91.2 fl (80.0-96.0); PLATELET COUNT, AUTOMATED 260 10^3/uL (150-450); RED BLOOD COUNT 5.01 10^6/uL (4.00-5.40); WHITE BLOOD COUNT 7.3 10^3/uL (4.0-10.0)
[2022-06-05 09:36] LABS: HEMOGLOBIN A1c 8.4 % (4.0-6.0)
[2022-06-05 09:54] LABS: ALBUMIN 4.1 G/DL (3.2-5.2); ALKALINE PHOSPHATASE 72 U/L (46-116); ALT/SGPT 22 U/L (7.0-40); AST/SGOT 24 U/L (<34); BILIRUBIN,TOTAL 0.3 MG/DL (0.3-1.2); BLOOD UREA NITROGEN 14 MG/DL (9-23); CARBON DIOXIDE LEVEL 25 MMOL/L (20-31); CHLORIDE LEVEL 107 MMOL/L (98-107); CHOLESTEROL LEVEL 82 MG/DL (<200); CREATININE FOR GFR 0.92 MG/DL (0.55-1.30); GLOMERULAR FILTRATION RATE > 60.0 (>39); GLUCOSE, FASTING 136 MG/DL (74-106); HDL CHOLESTEROL 48.1 MG/DL (>40); LDL CHOLESTEROL 21.3 MG/DL (<100); NON-HDL-C 33.9 MG/DL; POTASSIUM SERUM 4.3 MMOL/L (3.5-5.1); SODIUM LEVEL 141 MMOL/L (136-145); TOTAL PROTEIN 7.4 G/DL (5.7-8.2); TRIGLYCERIDES LEVEL 63 MG/DL (<150)
[2022-06-05 09:57] LABS: TOTAL 25(OH) VITAMIN D 34.3 NG/ML (20.0-100.0)
== END ==
LOC: M RAD 07:06
PROVIDERS: ATTEND Family Medicine
DX: I10 Essential (primary) hypertension (principal); R53.83 Other fatigue; E03.9 Hypothyroidism, unspecified; I70.0 Atherosclerosis of aorta

== ENCOUNTER → 2022-06-19 | Outpatient (CLI) | payer MEDICARE ==
[2022-06-19 07:49] LABS: BASO # 0.1 10^3/uL (0.0-0.2); EOS # 0.5 10^3/uL (0.0-0.5); HEMATOCRIT 43.2 % (36.0-47.0); HEMOGLOBIN 13.8 g/dl (12.0-15.5); LYMPH # 2.1 10^3/uL (1.5-5.0); LYMPH % 36.7 % (24.0-44.0); MEAN CORPUSCULAR HEMOGLOBIN 29.6 pg (27.0-33.0); MEAN CORPUSCULAR HGB CONC 31.9 g/dl (32.0-36.5); MEAN CORPUSCULAR VOLUME 92.5 fl (80.0-96.0); MONO # 0.6 10^3/uL (0.0-0.8); MONO % 9.8 % (2.0-8.0); NEUTROPHILS # 2.5 10^3/uL (1.5-8.5); NEUTROPHILS % 44.3 % (36.0-66.0); PLATELET COUNT, AUTOMATED 201 10^3/uL (150-450); RED BLOOD COUNT 4.67 10^6/uL (4.00-5.40); WHITE BLOOD COUNT 5.7 10^3/uL (4.0-10.0)
[2022-06-19 08:15] LABS: URIC ACID 2.8 MG/DL (3.1-7.8)
[2022-06-19 08:17] LABS: C REACTIVE PROTEIN QUANTITATIV < 0.40 MG/DL (<1.0)
[2022-06-19 08:18] LABS: ALT/SGPT 23 U/L (7.0-40); AST/SGOT 25 U/L (<34); BLOOD UREA NITROGEN 17 MG/DL (9-23); CPK CREATINE PHOSPHOKINASE 231 U/L (34-145); CREATININE FOR GFR 1.12 MG/DL (0.55-1.30); GLOMERULAR FILTRATION RATE 50.8 (>39); RHEUMATOID FACTOR QUANT 6.2 IU/ML (<14)
[2022-06-19 09:57] LABS: ERYTHROCYTE SEDIMENTATION RATE 10 mm/hr (0-30)
[2022-06-20 23:07] LABS: ANTINUCLEAR ANTIBODIES DIRECT Negative (Negative); CYCLIC CITRULLINATED PEPTIDE 5 units (0-19)
== END ==
LOC: M LAB 07:10
PROVIDERS: ATTEND Internal Medicine Rheumatology
DX: M25.50 Pain in unspecified joint (principal); M72.2 Plantar fascial fibromatosis; M54.2 Cervicalgia

== ENCOUNTER → 2022-06-26 | Outpatient (CLI) | payer MEDICARE | LOC: M LAB 06:52 → M RAD 06:52 | PROVIDERS: ATTEND Internal Medicine Rheumatology | DX: M54.2 Cervicalgia (principal) ==

== ENCOUNTER → 2022-10-17 | Outpatient (CLI) | payer MEDICARE ==
[~2022-10-17] MED LIST changes: +EZET10TA58 PO; +MECL-209 PO; -MECL1TAB31 PO; -ZETI10TA16 PO
== END ==
LOC: M WHC 09:50
PROVIDERS: ATTEND Family Medicine
DX: Z12.31 Encounter for screening mammogram for malignant neoplasm of breast (principal)

== ENCOUNTER → 2022-12-24 | Outpatient (CLI) | payer MEDICARE ==
[2022-12-24 10:30] LABS: ALBUMIN 4.1 G/DL (3.2-5.2); BILIRUBIN,TOTAL 0.4 MG/DL (0.3-1.2); CALCIUM LEVEL 9.5 MG/DL (8.3-10.6); CREATININE FOR GFR 1.1 MG/DL (0.55-1.30); GLOMERULAR FILTRATION RATE 51.8 (>39); POTASSIUM SERUM 4.7 MMOL/L (3.5-5.1)
[2022-12-24 10:31] LABS: CREATININE, URINE 33.6 MG/DL; MAU/CREAT RATIO 56.5 MCG/MG (0.0-30.0)
== END ==
LOC: M LAB 09:14
PROVIDERS: ATTEND Internal Medicine Endocrinology, Diabetes & Metabolism
DX: E11.65 Type 2 diabetes mellitus with hyperglycemia (principal)

== ENCOUNTER 2023-03-18 03:01 | Emergency (ER) | payer MEDICARE ==
[~2023-03-18] VITALS: Ht 149.9 cm; Wt 48.1 kg
[2023-03-18] MEDS ORDERED: METH-1164 PO (08:31)
[2023-03-18 08:50] VITALS: BP 148/78; TEMP 97.8; O2SAT 97
== END 2023-03-18 08:52 | disposition home or self-care (01) ==
LOC: M ED 03:01
DX: S13.4XXA Sprain of ligaments of cervical spine, initial encounter (principal); X50.0XXA Overexertion from strenuous movement or load, initial encounter; Y92.89 Other specified places as the place of occurrence of the external cause; Y93.89 Activity, other specified; Y99.8 Other external cause status; Z79.899 Other long term (current) drug therapy; Z79.82 Long term (current) use of aspirin; Z79.4 Long term (current) use of insulin; I10 Essential (primary) hypertension; E78.00 Pure hypercholesterolemia, unspecified; E11.9 Type 2 diabetes mellitus without complications; F41.9 Anxiety disorder, unspecified; F32.A Depression, unspecified; Z88.5 Allergy status to narcotic agent

== ENCOUNTER 2023-04-07 06:08 | Emergency (ER) | payer MEDICARE ==
[~2023-04-07] VITALS: Ht 149.9 cm; Wt 46.4 kg
[~2023-04-07 06:08] MED LIST changes: -LISI5TAB11; +LISI5TAB11 PO; +METH-1164 PO
[2023-04-07 06:21] VITALS: TEMP 97.9
[2023-04-07 06:53] LABS: BASO # 0.1 10^3/uL (0.0-0.2); BASO % 0.5 % (0.0-1.0); EOS # 0.3 10^3/uL (0.0-0.5); EOS % 2.7 % (0.0-3.0); HEMATOCRIT 39.4 % (36.0-47.0); HEMOGLOBIN 12.9 g/dl (12.0-15.5); LYMPH # 1.5 10^3/uL (1.5-5.0); LYMPH % 15.2 % (24.0-44.0); MEAN CORPUSCULAR HEMOGLOBIN 29.7 pg (27.0-33.0); MEAN CORPUSCULAR HGB CONC 32.7 g/dl (32.0-36.5); MEAN CORPUSCULAR VOLUME 90.6 fl (80.0-96.0); MONO # 0.8 10^3/uL (0.0-0.8); MONO % 8.3 % (2.0-8.0); NEUTROPHILS # 7.4 10^3/uL (1.5-8.5); PLATELET COUNT, AUTOMATED 195 10^3/uL (150-450); RED BLOOD COUNT 4.35 10^6/uL (4.00-5.40); WHITE BLOOD COUNT 10.1 10^3/uL (4.0-10.0)
[2023-04-07 07:06] LABS: PARTIAL THROMBOPLASTIN TIME 24.8 SECONDS (24.8-34.2); PROTHROMBIN TIME 12.9 SECONDS (12.5-14.5)
[2023-04-07 07:19] LABS: CK-MB VALUE MASS 1.2 NG/ML (<3.6)
[2023-04-07 07:20] LABS: MB/CK RELATIVE INDEX 1.06 (< OR =4)
[2023-04-07 07:21] LABS: ALBUMIN 3.5 G/DL (3.2-5.2); BILIRUBIN,DIRECT 0.2 MG/DL (<0.4); BILIRUBIN,TOTAL 0.3 MG/DL (0.3-1.2); CALCIUM LEVEL 8.5 MG/DL (8.3-10.6); CREATININE FOR GFR 1.07 MG/DL (0.55-1.30); GLOMERULAR FILTRATION RATE 53.4 (>39); TOTAL PROTEIN 6.2 G/DL (5.7-8.2)
[2023-04-07 08:05] LABS: CK-MB VALUE MASS 1.2 NG/ML (<3.6)
[2023-04-07 08:07] LABS: MB/CK RELATIVE INDEX 1.12 (< OR =4)
[2023-04-07] MEDS ORDERED: OXYB5TAB14 PO (08:57)
[2023-04-07] MEDS ORDERED: ASPI81TA26 PO (08:57)
[2023-04-07] MEDS ORDERED: REPA140I2 SC (08:57)
[2023-04-07] MEDS ORDERED: HOME MED LIST COMPLETE! XX SCH (09:00)
[2023-04-07] MEDS: GASTROGRAFIN SOLUTION 30ML PO SCH (10:12)
[2023-04-07] MEDS ORDERED: ISOVUE-370 76% 100ML VIAL As Ordered ONE (11:18)
[2023-04-07 14:00] VITALS: BP 140/67; O2SAT 86
== END 2023-04-07 14:06 | disposition left against medical advice (07) ==
LOC: M ED 06:08
DX: K31.84 Gastroparesis (principal); T44.3X5A Adverse effect of other parasympatholytics [anticholinergics and antimuscarinics] and spasmolytics, initial encounter; R33.9 Retention of urine, unspecified; Z88.5 Allergy status to narcotic agent; I45.10 Unspecified right bundle-branch block; I10 Essential (primary) hypertension; E11.9 Type 2 diabetes mellitus without complications; Z79.4 Long term (current) use of insulin; Z79.811 Long term (current) use of aromatase inhibitors; Z79.82 Long term (current) use of aspirin; Z79.899 Other long term (current) drug therapy; Z53.9 Procedure and treatment not carried out, unspecified reason
CPT/HCPCS: 36415; 74177; 80048; 80076; 81001; 82550; 82553; 83605; 83690; 84484; 85025; 85610; 85730; 87086; 87486; 87581; 87633; 87798; 93005; 93041; 99285; Q9963; Q9967

== ENCOUNTER → 2023-04-15 | Outpatient (CLI) | payer MEDICARE ==
[~2023-04-15] MED LIST changes: +ASPI81TA26 PO; +OXYB5TAB14 PO; +REPA140I2 SC
[2023-04-15 09:09] LABS: HEMATOCRIT 44.7 % (36.0-47.0); HEMOGLOBIN 14.5 g/dl (12.0-15.5); MEAN CORPUSCULAR HEMOGLOBIN 29.4 pg (27.0-33.0); MEAN CORPUSCULAR HGB CONC 32.4 g/dl (32.0-36.5); MEAN CORPUSCULAR VOLUME 90.5 fl (80.0-96.0); PLATELET COUNT, AUTOMATED 199 10^3/uL (150-450); RED BLOOD COUNT 4.94 10^6/uL (4.00-5.40); WHITE BLOOD COUNT 7.1 10^3/uL (4.0-10.0)
[2023-04-15 09:25] LABS: HEMOGLOBIN A1c 7.3 % (4.0-6.0)
[2023-04-15 09:36] LABS: BILIRUBIN,TOTAL 0.3 MG/DL (0.3-1.2); CALCIUM LEVEL 8.6 MG/DL (8.3-10.6); CHOLESTEROL RISK RATIO 1.73 (<5); CREATININE FOR GFR 1.1 MG/DL (0.55-1.30); GLOMERULAR FILTRATION RATE 51.7 (>39); HDL CHOLESTEROL 52.9 MG/DL (>40); LDL CHOLESTEROL 25.7 MG/DL (<100); NON-HDL-C 39.1 MG/DL; POTASSIUM SERUM 5.1 MMOL/L (3.5-5.1); TOTAL PROTEIN 6.9 G/DL (5.7-8.2)
[2023-04-15 09:38] LABS: THYROID STIMULATING HORMONE 3.343 uIU/ML (0.55-4.78)
== END ==
LOC: M LAB 08:26
PROVIDERS: ATTEND Family Medicine
DX: D64.9 Anemia, unspecified (principal); E78.00 Pure hypercholesterolemia, unspecified

== ENCOUNTER → 2024-01-04 | Outpatient (CLI) | payer MEDICARE ==
[~2024-01-04] MED LIST changes: +ONDA-282 PO; -ONDA4TAB6 PO; -ROSU40TA4 PO; +ROSU40TA81 PO
[2024-01-04 07:57] LABS: HEMATOCRIT 44.5 % (36.0-47.0); HEMOGLOBIN 14.4 g/dl (12.0-15.5); MEAN CORPUSCULAR HEMOGLOBIN 29.3 pg (27.0-33.0); MEAN CORPUSCULAR HGB CONC 32.4 g/dl (32.0-36.5); MEAN CORPUSCULAR VOLUME 90.4 fl (80.0-96.0); PLATELET COUNT, AUTOMATED 228 10^3/uL (150-450); RED BLOOD COUNT 4.92 10^6/uL (4.00-5.40); WHITE BLOOD COUNT 5.6 10^3/uL (4.0-10.0)
[2024-01-04 08:27] LABS: ALBUMIN 3.9 G/DL (3.2-5.2); BILIRUBIN,TOTAL 0.4 MG/DL (0.3-1.2); CALCIUM LEVEL 9.3 MG/DL (8.3-10.6); CHOLESTEROL RISK RATIO 4.65 (<5); CREATININE FOR GFR 1.18 MG/DL (0.55-1.30); GLOMERULAR FILTRATION RATE 47.7 (>39); LDL CHOLESTEROL 120.6 MG/DL (<100); PERCENT SATURATION 29.9 % (13.2-45.0); POTASSIUM SERUM 4.2 MMOL/L (3.5-5.1); TOTAL PROTEIN 7.2 G/DL (5.7-8.2)
[2024-01-04 08:28] LABS: THYROID STIMULATING HORMONE 2.532 uIU/ML (0.55-4.78)
[2024-01-04 08:29] LABS: TOTAL 25(OH) VITAMIN D 23.2 NG/ML (20.0-100.0)
[2024-01-04 08:38] LABS: HEMOGLOBIN A1c 6.9 % (4.0-6.0)
== END ==
LOC: M LAB 07:11
PROVIDERS: ATTEND Family Medicine
DX: I10 Essential (primary) hypertension (principal); D50.9 Iron deficiency anemia, unspecified

== ENCOUNTER → 2024-09-20 | Outpatient (REF) | payer MEDICARE ==
[~2024-09-20] MED LIST changes: -BAYE325T12 PO; +BAYE325T2 PO
[2024-09-20 13:31] LABS: BASO # 0.0 10^3/uL (0.0-0.2); BASO % 0.6 % (0.0-1.0); EOS # 0.3 10^3/uL (0.0-0.5); EOS % 4.0 % (0.0-3.0); LYMPH # 2.1 10^3/uL (1.5-5.0); LYMPH % 32.0 % (24.0-44.0); MONO # 0.8 10^3/uL (0.0-0.8); MONO % 12.1 % (2.0-8.0); NEUTROPHILS # 3.4 10^3/uL (1.5-8.5); NEUTROPHILS % 51.1 % (36.0-66.0); PLATELET COUNT, AUTOMATED 228 10^3/uL (150-450)
[2024-09-20 13:48] LABS: ESTIMATED AVERAGE GLUCOSE 134.0 MG/DL (60-110)
[2024-09-20 13:58] LABS: CREATININE, URINE 77.1 MG/DL
[2024-09-20 13:59] LABS: ALT/SGPT 14.0 U/L (7.0-40); AST/SGOT 21.0 U/L (<34); CALCIUM LEVEL 9.0 MG/DL (8.3-10.6); CARBON DIOXIDE LEVEL 27.0 MMOL/L (20-31); CHLORIDE LEVEL 107.0 MMOL/L (98-107); CHOLESTEROL LEVEL 177.0 MG/DL (<200); CHOLESTEROL RISK RATIO 3.88 (<5); CREATININE FOR GFR 1.12 MG/DL (0.55-1.30); GLOMERULAR FILTRATION RATE 51.3 (>39); LDL CHOLESTEROL 108.8 MG/DL (<100); MALB URINE SIEMENS 17.0 MG/L; MAU/CREAT RATIO 22.0 MCG/MG (0.0-30.0); NON-HDL-C 131.4 MG/DL; POTASSIUM SERUM 4.7 MMOL/L (3.5-5.1); SODIUM LEVEL 143.0 MMOL/L (136-145); TRIGLYCERIDES LEVEL 113.0 MG/DL (<150)
[2024-09-20 14:01] LABS: FREE T4 1.19 NG/DL (0.89-1.76)
== END ==
LOC: M SFHCADAM 07:29
PROVIDERS: ATTEND Family Medicine
DX: Z00.00 Encounter for general adult medical examination without abnormal findings (principal); E11.9 Type 2 diabetes mellitus without complications

== ENCOUNTER → 2024-10-11 | Outpatient (REF) | payer MEDICARE, MEDICAID | LOC: M SFHCADAM 07:58 | PROVIDERS: ATTEND Family Medicine | DX: M81.0 Age-related osteoporosis without current pathological fracture (principal) ==

== ENCOUNTER → 2024-10-27 | Outpatient (REF) | payer MEDICARE, MEDICAID ==
[2024-10-27 18:56] LABS: CALCIUM LEVEL 8.7 MG/DL (8.3-10.6); CARBON DIOXIDE LEVEL 28.0 MMOL/L (20-31); CHLORIDE LEVEL 105.0 MMOL/L (98-107); CREATININE FOR GFR 1.04 MG/DL (0.55-1.30); GLOMERULAR FILTRATION RATE 56.1 (>39); POTASSIUM SERUM 4.1 MMOL/L (3.5-5.1); SODIUM LEVEL 136.0 MMOL/L (136-145)
== END ==
LOC: M SFHCADAM 13:04
PROVIDERS: ATTEND Family Medicine
DX: M81.0 Age-related osteoporosis without current pathological fracture (principal)

== ENCOUNTER 2024-11-04 13:41 | Outpatient (CLI) | payer MEDICARE, MEDICAID ==
[~2024-11-04] VITALS: Ht 152.4 cm; Wt 52.7 kg
[2024-11-04 14:35] VITALS: BP 184/82; O2SAT 99
[2024-11-04] MEDS: ZOLEDRONIC ACID 5 MG in IV 1 EA IV ONE (14:43)
[2024-11-04 15:35] VITALS: BP 163/77; O2SAT 97
== END 2024-11-04 15:35 | disposition home or self-care (01) ==
LOC: M INFU 13:41
PROVIDERS: ATTEND Family Medicine
DX: M81.0 Age-related osteoporosis without current pathological fracture (principal); Z88.5 Allergy status to narcotic agent
CPT/HCPCS: 77080; 96365; J3489

== ENCOUNTER → 2024-11-04 | Outpatient (CLI) | payer MEDICARE, MEDICAID | LOC: M WHC 11:57 | PROVIDERS: ATTEND Family Medicine | DX: M81.0 Age-related osteoporosis without current pathological fracture (principal) ==